=== PATIENT | female | born 1995 | race Two or more races ===

== ENCOUNTER 2021-08-30 07:22 | Emergency (ER) | payer OTHER ==
[~2021-08-30] VITALS: Ht 182.9 cm; Wt 154.2 kg
[~2021-08-30 07:22] MED LIST: TYLENOL100 MG/M1
== END 2021-08-30 13:17 | disposition home or self-care (01) ==
LOC: ER 07:22
DX: K52.89 Other specified noninfective gastroenteritis and colitis (principal)